=== PATIENT | male | born 1980 | race Caucasian/White ===

== ENCOUNTER 2022-03-18 13:53 | Outpatient (CLI) | payer BC, SELFPAY ==
--- NOTE | 2022-03-18 13:56 | ECHO_ITS ---
Patient Info Name: Eric Sims Age: 41 years : 1980 Gender: Male Ht: 71 in Wt: 220 lbs BSA: 2.26 m2 HR: 91 bpm BP: 143 / 101 mmHg Technical Quality: Good Exam Date: 03/18/2022 2:04 PM Exam Location: [facility] Patient Status: Outpatient Admit Date: 03/18/2022 Staff Ordering Physician: Edilson Fox DO Call Center Operations Manager: Mercedes Blackman RDCS Attending Provider: Edilson Fox DO Referring Physician: Dominique CANTOR; Exam Type: CA echo doppler color flow Study Info Indications R94.31 - Abnormal electrocardiogram ECG EKG Complete two-dimensional, color flow and Doppler transthoracic echocardiogram is performed. Summary 1. Complete two-dimensional, color flow and Doppler transthoracic echocardiogram is performed. 2. Left ventricular chamber dimension is normal. 3. Left ventricular systolic function is normal, estimated at 55-60%. 4. There is mildly increased left ventricular wall thickness. 5. The left ventricular diastolic function is grade I diastolic dysfunction. 6. E/e' 6 is not elevated. 7. Global longitudinal strain is abnormal at -12.3%. 8. There is trace tricuspid valve regurgitation. 9. No pulmonary hypertension, estimated pulmonary arterial systolic pressure is 29 mmHg. 10. There is trace pulmonic regurgitation. Left Ventricle E/e' 6 is not elevated. Global longitudinal strain is abnormal at -12.3%. Left ventricular chamber dimension is normal. Left ventricular systolic function is normal, estimated at 55-60%. There is mildly increased left ventricular wall thickness. The left ventricular diastolic function is grade I diastolic dysfunction. Right Ventricle Right ventricular systolic function is normal and with normal TAPSE 1.9 cm. Right ventricular chamber dimension is normal. Left Atria Left atrial chamber dimension is normal. Right Atria Right atrial chamber dimension is normal. Aortic Valve The aortic valve is trileaflet. There is no aortic valve stenosis. There is no aortic valve regurgitation. Pulmonic Valve There is trace pulmonic regurgitation. Mitral Valve There is no mitral valve stenosis. There is no mitral valve regurgitation. Tricuspid Valve There is trace tricuspid valve regurgitation. No pulmonary hypertension, estimated pulmonary arterial systolic pressure is 29 mmHg. Pericardium/Pleural There is no pericardial effusion. Inferior Vena Cava Normal inferior vena cava with >50% collapse upon inspiration consistent with normal right atrial pressure, 5 mmHg. Aorta The aortic root size at the sinus of Valsalva is normal. Left Ventricular Outflow Tract Name Value Normal LVOT 2D LVOT Diameter 2.1 cm LVOT Doppler LVOT Peak Gradient 4 mmHg LVOT Mean Gradient 2 mmHg LVOT VTI 15 cm LVOT VTI/AV VTI Ratio 0.9 LVOT Stroke Volume 51 ml LVOT CO 4.8 l/min LVOT CI 2.1 l/min/m2 Pulmonic Valve
== END 2022-03-18 13:54 | disposition home or self-care (01) ==
LOC: ANHCARD 13:53
PROVIDERS: PCP Internal Medicine; Visit Provider Internal Medicine
DX: R94.31 Abnormal electrocardiogram [ECG] [EKG] (principal); R93.1 Abnormal findings on diagnostic imaging of heart and coronary circulation
CPT/HCPCS: 93306

== ENCOUNTER 2023-03-05 08:32 | Outpatient (CLI) | payer BC, SELFPAY ==
--- NOTE | 2023-03-10 15:10 | WPDSLEEPSTUD ---
Sleep Study Date of Study: 03/05/23 Ordering Provider: Chichi Lyon NP Interpreting Physician: Clari Ruiz MD Sleep Study Type: Split Polysomnogram Height: 1.8 m Weight: 99.79 kg Body Mass Index: 30.7 Neck Circumference (inches): 17 Glen: 11 Reason for Sleep Study Hypersomnolence Sleep History Eric Sims is a 42-year-old man with poor sleep for years. His complains about his loud snoring and witnessed apnea. He wakes up frequently at night. He sleepy immediately after work and feels that he needs a nap. Sometimes, he wakes himself up gasping during the night with difficulties returning to sleep. He occasionally awakens from sleep feeling short of breath. He frequently wakes at night with heartburn, belching or coughing.??He constantly snores, and constantly snores loudly enough that others complain. He rarely has trouble sleeping when he has a cold. He rarely wakes up gasping for breath during the night. He constantly has breathing problems at night. He rarely sweats excessively at night. He rarely notices his heart pounding or beating irregularly during the night. He occasionally falls asleep during the day. He occasionally falls asleep involuntarily, never falls asleep while driving. He never experiences loss of muscle tone with strong emotion. He rarely has daytime difficulty at work due to excessive sleepiness. He never feels paralyzed on waking or falling asleep. He never experiences vivid dreams upon waking or falling asleep. He never feels afraid of going to sleep. He rarely has nightmares. He occasionally recalls his dreams. He rarely has thoughts racing through his mind. He never feels sad or depressed. He rarely feels anxiety. He rarely notices parts of his body jerk. He never kicks during the night. He never feels crawling or aching feelings in his legs. He never feels leg pain at night. He never has morning jaw pain, never grinds his teeth at night. He never feels bothered by pain during the day, never is awakened by pain during the night. He rarely wakes up feeling stiff in the morning, and he rarely wakes feeling sore or achy. He rarely awakens with pain in his neck, spine, or joints. Normal bedtime is between 9:00 p.m. and 12 midnight, falling asleep in a few minutes, waking once at night for 1/2 hour. While awake, goes to the bathroom and gets a drink of water. He returns to sleep and wakes in the morning sometime between 4:30 a.m. and 6:00 a.m.. He estimates getting on average 7 hours of sleep at night. On weekends bedtime is still between 9:00 p.m. and 12 midnight, wake time is later, between 7:00 a.m. and 8:00 a.m. He takes naps in the afternoon or evening. A short nap lasting 10-15 minutes might be refreshing. He feels better in the morning compared to other times of day. Habits:??Tobacco: Never smoker Caffeine: 1 per day. Alcohol: none Recreational substances: none PMFSH Past Medical History Medical History Hypertension Family History Family History Grandparent Diabetes mellitus Hypertension Cerebrovascular accident Mother Hypertension Depression Anxiety Thyroid disorder Social History Social History Smoking status: Never smoker Second hand tobacco smoke exposure: No Alcohol intake: current Alcohol use details: Beer, vodka, whisky, gin- once a week Substance use: current Substance use type: marijuana Other substance usage details: Gummies-couple times a month Do You Feel Safe in your Home?: Yes Lack of Transportation: No Lack of Food: Never True Current Housing: I Have Housing Concerned About Future Housing: No Difficulty Paying Gas/Electric Bills: No Difficulty Paying for Meds: No Currently Unemployed: No Education: High School Diploma/GED Difficulty w/ Childcare or Fam
[2023-03-10 17:13] VITALS: BMI 30.7
--- NOTE | 2023-03-12 10:29 | SLEEP ---
PT HAD CHOSEN [facility] TIME OF SLEEP STUDY. S/O TO IV RESP PER DR OFFICE. MOST LIKELY DUE TO INSURANCE
== END 2023-03-06 07:25 | disposition home or self-care (01) ==
LOC: ANHCSM 08:33
PROVIDERS: PCP Internal Medicine; Visit Provider Nurse Practitioner
DX: G47.30 Sleep apnea, unspecified (principal); R94.31 Abnormal electrocardiogram [ECG] [EKG]; I10 Essential (primary) hypertension
CPT/HCPCS: 95811